=== PATIENT | male | born 1985 | race African-American/Black ===

== ENCOUNTER 2019-03-12 02:42 | Emergency (ER) | payer SELFPAY ==
[~2019-03-12] VITALS: Ht 165.1 cm; Wt 63.5 kg
[2019-03-12] MEDS ORDERED: NKM (02:50)
[2019-03-12 03:04] VITALS: BP 128/86
--- NOTE | 2019-03-12 03:07 | NUR ---
ED Nurse Note: Patient was brought by [employer] due to chest pain. Patient has handcuffs on, not cooperative. AAO x4, VSS at this time, skin is dry, intact, warm to touch.
--- NOTE | 2019-03-12 03:12 | NUR ---
ED Nurse Note: Patient refused any type of care.
--- NOTE | 2019-03-12 03:13 | Emergency Room Report ---
History of Present Illness General Chief Complaint: Medical Clearance Source: Patient Present Illness HPI Is a 33-year-old male with no past medical history. He presents with chief complaint of chest pressure. He was brought in by police for medical clearance. He was obstructing officer and was arrested. He then complaining of chest pressure. He said that he did cocaine tonight. No radiation. No pain. No nausea no vomiting. No fever chills. No shortness breath. No diaphoresis. Denies any other complaint. Allergies: Coded Allergies: No Known Allergies (Unverified , 03/12/19) Patient History Past Medical History: see triage record, old chart reviewed Past Surgical History: none Pertinent Family History: none Social History: Reports: drug use; Denies: smoking Immunizations: other Reviewed Nursing Documentation: PMH: Agreed; PSxH: Agreed Nursing Documentation-PMH Past Medical History: No Stated History Review of Systems Eye: Denies: eye pain, blurred vision ENT: Denies: ear pain, nose congestion, throat swelling Respiratory: Denies: cough, shortness of breath Cardiovascular: Reports: chest pain; Denies: palpitations Gastrointestinal: Denies: abdominal pain, diarrhea, nausea, vomiting Musculoskeletal: Denies: back pain, joint pain Skin: Denies: rash Neurological: Denies: headache, numbness Endocrine: Denies: increased thirst, increased urine Hematologic/Lymphatic: Denies: easy bruising All Other Systems: negative except mentioned in HPI Physical Exam Vital Signs Date Time Temp Pulse Resp B/P (MAP) Pulse Ox O2 Delivery O2 Flow Rate FiO2 03/12/19 02:45 98.8 85 18 95 Room Air 03/12/19 03:04 128/86 vitals normal Sp02 EP Interpretation: reviewed, normal General Appearance: well appearing, no apparent distress, alert Head: normocephalic, atraumatic Eyes: bilateral eye PERRL, bilateral eye EOMI ENT: hearing grossly normal, normal pharynx Neck: full range of motion, supple, no meningismus Respiratory: chest non-tender, lungs clear, normal breath sounds Cardiovascular #1: regular rate, rhythm, no murmur Gastrointestinal: normal bowel sounds, non tender, no mass, no organomegaly, no bruit, non-distended Musculoskeletal: back normal, gait/station normal, normal range of motion Psychiatric: mood/affect normal Skin: warm/dry Medical Decision Making Diagnostic Impression: Primary Impression: Chest pain Qualified Codes: R07.9 - Chest pain, unspecified Additional Impressions: Examination, medicolegal reason Cocaine abuse ER Course Patient presents with chest pressure after using cocaine. His vitals are stable. Patient was very rude and uncooperative. He was yelling at the nursing staff. He refuse EKG because he said he had EKG leads on him and it was bothering him so he took him off. He refuse to have another one done. He refused blood work. Explained to the patient that he's having chest pain after cocaine, I want to rule out any cardiac issue. Patient still refused. He start calling me and nursing staff names. Patient is competent to refuse treatment. We'll discharge the police. Rhythm Strip Diag. Results EP Interpretation: other Rate: 88 Rhythm: NSR, no PVC's, no ectopy Last Vital Signs Date Time Temp Pulse Resp B/P (MAP) Pulse Ox O2 Delivery O2 Flow Rate FiO2 03/12/19 03:04 98.8 18 128/86 95 Room Air 03/12/19 03:04 85 Status: unchanged Disposition: D/C TO LAW ENFORCEMENT IN [facility] Condition: Stable Additional Instructions: Stop using drugs. Follow-up up with your doctor in 7 days. Go to rehabilitation. Return if symptom worsen. Jeff Crawford MD March 12, 2019 03:13
--- NOTE | 2019-03-12 03:15 | NUR ---
ED Nurse Note: Patient refised EKG, and blood work. Risk and benefits explained by ER
--- NOTE | 2019-03-12 03:17 | NUR ---
ED Nurse Note: Pt cleared by health care Provider for discharge. All medical deviecs such as ID band removed. Pt is AAO x4, taken away by [employer], left with all personal belongings.
== END 2019-03-12 03:17 ==
LOC: EMR 02:55
DX: R07.9 Chest pain, unspecified (principal); F14.10 Cocaine abuse, uncomplicated
CPT/HCPCS: 99282